=== PATIENT | female | born 1950 | race African-American/Black ===

== ENCOUNTER 2019-07-16 01:04 | Day surgery (SDC) | payer MEDICARE, SELFPAY ==
[2019-07-09 15:08] VITALS: BMI 30.2
[2019-07-16 09:41] VITALS: BP 167/79; PULSE 58; RESP 18; TEMP 35.9; O2SAT 96
[2019-07-16 09:43] VITALS: BMI 31.1
--- NOTE | 2019-07-16 10:05 | PM.HPGS ---
History of Present Illness History of Present Illness Consent: Risks, benefits, and alternatives have been discussed and questions answered. Patient agrees to proceed with procedure. Chief complaint: epigastric pain Narrative: Ewelina Coreas is a 68 year old AA female referred for gastroscopy for evaluation of upper abdominal pain associated with some bloating no nausea or vomiting. This has been a chronic problem movements present before her bladder cancer surgery and chemotherapy over a year ago. Patient has had CT scans a year ago she had recent CT scan several weeks ago report this was normal. She has had blood work which was unremarkable. She has not had ultrasounds for she is aware. Patient has had no change in lower GI habits. She states she had a colonoscopy 3-5 years ago in [place] for this was normal. Patient does not take nonsteroidal inflammatory drugs on a regular basis. FOR[facility]LY [facility] Past Medical History Medical History (Updated 07/16/19 @ 10:07 by Daron Bynum MD) Bladder cancer HTN (hypertension) Hypothyroidism Obesity Social History Social History Gender identity (if verbalized by the patient): Female Meds Home Medications and Allergies Home Medications Medication Instructions Recorded Confirmed Type aspirin 81 mg PO DAILY 07/09/19 07/09/19 History bisoprolol-hydrochlorothiazide See Rx Instructions .ROUTE .COMPLEX 07/09/19 07/09/19 History levothyroxine 100 mcg PO DAILY 07/09/19 07/09/19 History Allergies Allergy/AdvReac Type Severity Reaction Status Date / Time No Known Allergies Allergy Unverified 07/16/19 09:38 Vital Signs Vital Signs - 24 hr 07/16/19 09:41 Temperature 35.9 C L Pulse Rate 58 L Respiratory Rate 18 Blood Pressure 167/79 H Pulse Oximetry 96 Exam Const: Orientation/consciousness: patient oriented x3 Resp: Auscultation: clear to auscultation bilaterally Cardio: Rate: regular rate Rhythm: regular rhythm Heart sounds: no murmurs GI: GI Palp: Yes Soft to palpation, No Tenderness to palpation present (GI), Yes No hepatosplenomegaly present and No Palpable mass present Auscultation: normal bowel sounds Neuro: General: patient oriented x3 and no focal motor deficits Extrem: General: no pedal edema Assessment and Plan Additional Plan Gastroscopy for evaluation of upper abdominal pain/ bloating
--- NOTE | 2019-07-16 10:06 | WPDANESEPPF ---
Anes - Initial Pre Proc Eval Procedure: Operation Date: 07/16/19 10:30 Proposed Procedures p Esophagogastroduodenoscopy - Elbert Gaspar MD Date/Time: 07/16/19 10:06 Surgeon: Elbert Gaspar MD Pre Op Diagnosis: epigastric pain Patient Data Age: 68 Gender: F Height: 5 ft 4 in Weight: 82.2 kg Last Vital Signs Temp 35.9 C L 07/16/19 09:41 Pulse 58 L 07/16/19 09:41 Resp 18 07/16/19 09:41 BP 167/79 H 07/16/19 09:41 Pulse Ox 96 07/16/19 09:41 Allergies Allergy/AdvReac Type Severity Reaction Status Date / Time No Known Allergies Allergy Unverified 07/16/19 09:38 Home Medications Medication Instructions Recorded Confirmed Type aspirin 81 mg PO DAILY 07/09/19 07/09/19 History bisoprolol-hydrochlorothiazide See Rx Instructions .ROUTE .COMPLEX 07/09/19 07/09/19 History levothyroxine 100 mcg PO DAILY 07/09/19 07/09/19 History Patient hx anesthesia problems: none Family hx anesthesia problems: none PMFSH Past Medical History Medical History (Updated 07/16/19 @ 10:07 by Daron Bynum MD) Bladder cancer HTN (hypertension) Hypothyroidism Obesity Social History Social History Gender identity (if verbalized by the patient): Female Anes - Eval Final PreProcedure Day of Procedure 07/16/19 10:06 Patient weight: obese Heart: regular rate and rhythm Lungs: clear to auscultation Airway: Mallampati scale class II Neurological: alert and oriented Last oral intake: >/= 8 hours ASA classification: III Emergent: no Anesthetic plan: proceed Anesthesia type and monitoring: general GIVS and standard monitoring Informed Consent: The patient's anesthetic plan and its attendant risks and benefits were discussed with the patient/family/POA. Questions were solicited and answers provided to the satisfaction of the patient/family/POA.
[2019-07-16] MEDS: LACTATED RINGERS 1,000 ML 150 ML IV CONT (10:19)
[2019-07-16 10:57] VITALS: BP 133/73; PULSE 66; RESP 20; O2SAT 99
[2019-07-16 11:07] VITALS: BP 150/79; PULSE 58; RESP 14; O2SAT 99
[2019-07-16 11:17] VITALS: BP 170/72; PULSE 53; RESP 20; O2SAT 98
[2019-07-16] MEDS: HEPARIN SOD FLUSH 500 UNITS/5 ML SYRINGE IV PUSH (11:30)
== END 2019-07-16 11:50 | disposition home or self-care (01) ==
PROVIDERS: PCP Internal Medicine; Visit Provider Internal Medicine Gastroenterology
PROC: 0DJ08ZZ Inspection of Upper Intestinal Tract, Via Natural or Artificial Opening Endoscopic (ICD-10-PCS; CPT 43235; principal; 2019-07-16 10:30)
DX: K21.0 Gastro-esophageal reflux disease with esophagitis (principal); K29.50 Unspecified chronic gastritis without bleeding; I10 Essential (primary) hypertension; E03.9 Hypothyroidism, unspecified; Z85.51 Personal history of malignant neoplasm of bladder; Z92.21 Personal history of antineoplastic chemotherapy; E66.9 Obesity, unspecified; Z68.31 Body mass index [BMI] 31.0-31.9, adult; Z79.82 Long term (current) use of aspirin
CPT/HCPCS: 43239; 88305; J2001; J2704; J7120